=== PATIENT | male | born 1995 | race Caucasian/White ===

== ENCOUNTER 2018-01-29 17:10 | Emergency (ER) | payer OTHER ==
[2018-01-29 17:49] VITALS: BP 129/75
--- NOTE | 2018-01-29 18:27 | UC ---
Orquidea Dexter Rebecca, scribed for Grace Barger MD on 01/29/18 at 1822 . Skin Complaint HPI - HPI Summary HPI Summary: Pt is a 22 y/o M who presents to [facility] c/o pruritic and erythematous rash without any pain. Rash is diffuse and around the L eye. Tried using Zanfel and Calamine lotion which helped alleviate sx. States that the rash around the L eye is only around the eye and does not feel as though it is bothering the actual eye. Denies any SOB, difficulty breathing, symptoms on mouth. Suspects he was exposed to the poison catina on January 27 (2 days ago) and never burned the poison catina. Prior reactions to poison catina and oak, last about 1 year ago and ahs used Prednisone in the past. - History of Current Complaint Chief Complaint: [facility] Time Seen by Provider: 01/29/18 18:15 Stated Complaint: RASHES Hx Obtained From: Patient Onset/Duration: Lasting Days - 2 days, Still Present Current Severity: None Pain Intensity: 0 Pain Scale Used: 0-10 Numeric Location: Diffuse, Other - Around L eye Character: Pruritus, Redness Aggravating Factor(s): Nothing Alleviating Factor(s): OTC Creams/Salves - Zanfel and Calamine lotion Associated Signs & Symptoms: Positive: Negative - Allergy/Home Medications Allergies/Adverse Reactions: Allergies Allergy/AdvReac Type Severity Reaction Status Date / Time No Known Allergies Allergy Verified 01/29/18 17:50 Review of Systems Constitutional: Negative Skin: Rash - Diffuse and around L eye Eyes: Negative ENT: Negative Respiratory: Negative Cardiovascular: Negative Gastrointestinal: Negative Genitourinary: Negative Motor: Negative Neurovascular: Negative Musculoskeletal: Negative Neurological: Negative Psychological: Negative All Other Systems Reviewed And Are Negative: Yes - Comments Additional Review of Systems Comments: NEGATIVE: SOB, difficulty breathing, symptoms on mouth PMH/Surg Hx/FS Hx/Imm Hx - Additional Past Medical History Additional PMH: PMHx: Poison catina and oak Negative PMHx: DM - Surgical History Surgical History: None - Family History Known Family History: Negative: Hypertension, Diabetes - Social History Alcohol Use: Weekly Substance Use Type: None Smoking Status (MU): Never Smoked Tobacco Physical Exam Vital Signs: Initial Vital Signs Temp 98.0 F 01/29/18 17:44 Pulse 60 07/05/18 17:44 Resp 16 01/29/18 17:44 BP 129/75 01/29/18 17:44 Pulse Ox 100 01/29/18 17:44 Course/Dx - Course Course Of Treatment: Patient medications and allergies reviewed. Discharge - Sign-Out/Discharge Documenting (check all that apply): Discharge/Admit/Transfer - Discharge - Discharge Plan Condition: Stable Disposition: HOME Prescriptions: predniSONE TAB* [Deltasone 20 MG TAB*] 20 mg PO DAILY #14 tab Patient Education Materials: Contact Dermatitis (ED), Poison Catina (ED) Referrals: No Primary Care Phys,NOPCP [Primary Care Provider] - Mariusz Kevin MD [Medical Doctor] - (Call to schedule an appointment for tomorrow, mentioning that you were seen by Urgent Care and referred for an appointment. ) Additional Instructions: - Take prednisone exactly as prescribed until gone - starting today - Okay to take Benadryl (1-2 tablets) every 6 hours as needed. This medication may cause drowsiness - do NOT drive, operate machinery or drink alcohol while taking Benadryl -Take pepcid 20mg 2 times daily for 7 days for itching -Avoid getting over heated (hot showers, hot tubs, exercise) for at least 48 hours - Try to avoid aspirin, NSAIDs (Motrin, Aleve, Naprosyn) for 2-3 days - Okay to apply cool compresses to the area of injury - Contact the eye doctor tomorrow morning for evaluation of your eye - they will likely be able to evaluate you tomorrow - call first thing in the morning - Go to an urgent care or an emergency department with questions or concerns - Billing Disposition and Condition Condition: STABLE Disposition: Home The documentation as recorded by the Orquidea dillard Rebecca accurately reflects the service I personally performed and the decisions made by , Grace Barger MD.
== END 2018-01-29 18:47 | disposition home or self-care (01) ==
LOC: UCEAST 17:10
DX: R21 Rash and other nonspecific skin eruption (principal)
CPT/HCPCS: 99202; G0463